=== PATIENT | male | born 1945 | race Caucasian/White ===

== ENCOUNTER 2023-03-25 16:15 | Outpatient (CLI) | payer MEDICARE | END 2023-03-25 23:59 | disposition home or self-care (01) | LOC: RAD 16:15 | PROVIDERS: ATTEND Chiropractor | DX: M43.8X6 Other specified deforming dorsopathies, lumbar region (principal); M51.37 Other intervertebral disc degeneration, lumbosacral region; I70.0 Atherosclerosis of aorta | CPT/HCPCS: 72100 ==

== ENCOUNTER 2023-07-21 10:22 | Outpatient (CLI) | payer OTHER | END 2023-07-21 23:59 | disposition home or self-care (01) | LOC: CARD DIAG 10:22 | PROVIDERS: ATTEND Chiropractor | DX: I08.8 Other rheumatic multiple valve diseases (principal); I25.10 Atherosclerotic heart disease of native coronary artery without angina pectoris | CPT/HCPCS: 93306 ==